=== PATIENT | male | born 1980 | race American Indian/Alaskan Native ===

== ENCOUNTER 2018-01-09 07:32 | Emergency (ER) | payer OTHER ==
[2018-01-09 07:38] VITALS: BP 161/97; PULSE 80; RESP 20; TEMP 98.2; O2SAT 96
[2018-01-09] MEDS ORDERED: Tetanus/Diphtheria Toxoids 0.5 ml Syringe IM ONE ×2 (08:24→08:33)
--- NOTE | 2018-01-09 08:28 | C.PDOC ---
History Of Present Illness 37 y/o male presents to the ER complaining of right hand puncture wound sustained 2 days ago, while he was working " metal piece slipped and puncture my right palm". Pt reports that he put some abx ointment on the top of palm, however he noticed a "piece of skin sticking out from the wound since this morning". Pt denies fever, chills, hand weakness, deformity, sensory or vascular deficits to Right hand. Ambulate to Ed for evaluation, not in any apparent distress.. Time Seen by Provider: 01/09/18 07:39 Chief Complaint (Nursing): Abnormal Skin Integrity History Per: Patient History/Exam Limitations: no limitations Onset/Duration Of Symptoms: Days Current Symptoms Are (Timing): Still Present Severity: Moderate Past Medical History Reviewed: Historical Data, Nursing Documentation, Vital Signs Vital Signs: Last Vital Signs Temp 98.2 F 01/09/18 07:36 Pulse 80 01/09/18 07:36 Resp 20 01/09/18 07:36 BP 161/97 H 01/09/18 07:36 Pulse Ox 96 01/09/18 07:36 - Medical History PMH: No Chronic Diseases Surgical History: Cholecystectomy (2007) Family History: States: No Known Family Hx - Social History Hx Alcohol Use: Yes Hx Substance Use: No - Immunization History Hx Tetanus Toxoid Vaccination: No Hx Influenza Vaccination: No Hx Pneumococcal Vaccination: No Review Of Systems Except As Marked, All Systems Reviewed And Found Negative. Constitutional: Negative for: Fever, Chills Musculoskeletal: Positive for: Hand Pain (right hand pain) Neurological: Negative for: Weakness, Numbness Physical Exam - Physical Exam Appears: Well, Non-toxic, No Acute Distress Skin: Normal Color, Warm, Dry Head: Atraumatic, Normacephalic Extremity: Normal ROM (Right hand), No Tenderness, Capillary Refill (less than 2sec to Right hand), No Deformity, No Swelling, Other (Right hand: small puncture wound to palmar aspect thenar area with fat tissue protruding from wound. Wound appears clean,dry, and intact, no evidence of cellulitis) Pulses: Right Radial: Normal Neurological/Psych: Oriented x3, Normal Speech, Normal Motor, Normal Sensation ED Course And Treatment O2 Sat by Pulse Oximetry: 96 (RA) Pulse Ox Interpretation: Normal Progress Note: On re-eval, pt is afebrile hemodynamicaly stable. non-toxic. Right hand: FAROM, no neurovascular deficits, Wound debrided, explored and no FB noted, wound appears cleaned, no evidence of cellulitis. tetanus given. Pt advised and ref. to F/u with PMD in 2 days for re-eval. return if any new changes. Laceration - Laceration Repair Right hand Wound Length (In cm): 1 Wound Examination: Irrigated With Saline, No FB With Wound Exploration, No Tendon Injury With Wound Exploration, Foreign Material Removed Manually (fat tissue wound flap was removed ) Wound Closure: Skin Glue Wound Complexity: Simple Disposition Counseled Patient/Family Regarding: Diagnosis, Need For Followup - Disposition Referrals: Akshat Lin MD [Staff Provider] - Disposition: HOME/ ROUTINE Disposition Time: 08:25 Condition: STABLE Additional Instructions: keep wound clean, dry Take medication as prescribed Follow up with hand specialist, PMD in 2-3 days for re-evaluation. return to ED if any worsening or new changes Prescriptions: Ciprofloxacin [Cipro] 500 mg PO BID #14 tab Instructions: Wound Care Forms: [employer] (Polish), Work Excuse - Clinical Impression Clinical Impression: Puncture wound - PA / [employer] / Resident Statement MD/DO has reviewed & agrees with the documentation as recorded. - Scribe Statement The provider has reviewed the documentation as recorded by the Franckibe Jasmin Gomez Provider Attestation All medical record entries made by the Scribe were at my direction and personally dictated by me. I have reviewed the chart and agree that the record accurately reflects my personal performance of the history, physical exam, medical decision making, and the department course for this patient. I have also personally directed, reviewed, and agree with the discharge instructions and disposition.
== END 2018-01-09 08:44 | disposition home or self-care (01) ==
LOC: C.ER 07:32
DX: S61.431A Puncture wound without foreign body of right hand, initial encounter (principal); W26.9XXA Contact with unspecified sharp object(s), initial encounter; Z23 Encounter for immunization